=== PATIENT | female | born 1945 | race Caucasian/White ===

== ENCOUNTER 2022-07-25 18:45 | Inpatient (IN) | payer OTHER, MEDICAID ==
[~2022-07-25] VITALS: Ht 165.1 cm; Wt 72.5 kg
[2022-07-25] MEDS ORDERED: MORPHINE SULFATE 4 MG/ML SYR/VIAL IV ONE (20:45)
[2022-07-25] MEDS ORDERED: ACETAMINOPHEN 325 MG TAB PO PRN (21:00)
[2022-07-25] MEDS ORDERED: DOCUSATE SOD 100 MG CAP PO PRN (21:00)
[2022-07-25] MEDS ORDERED: ONDANSETRON HCL 4 MG/2 ML VIAL IV PRN (21:00)
[2022-07-25] MEDS: D5W/SOD CHLO 0.9% 1,000 ML IV SCH (21:28)
[2022-07-25] MEDS ORDERED: NITROGLYCERIN 0.4 MG SL TAB SL PRN (21:30)
[2022-07-25] MEDS ORDERED: MORPHINE SULFATE INJ 2 MG/ml SYRG IV PRN (21:30)
[2022-07-25 21:57] LABS: Basophils # (auto) 0 10 ^3/uL (0-0.2); Basophils % (auto) 0.5 % (0.0-2.0); Eosinophils # (auto) 0 10 ^3/uL (0-0.8); Eosinophils % (auto) 0.3 % (0.0-7.0); Hematocrit 43.3 % (36.0-46.0); Hemoglobin 14.5 g/dL (12.2-16.2); Lymphocytes % (auto) 12.2 % (10.0-50.0); Mean Corpuscular Hemoglobin 29.8 pg (28.0-32.0); Mean Corpuscular Hgb Conc. 33.4 g/dL (32.0-36.0); Monocytes # (auto) 0.3 10 ^3/uL (0-1.3); Monocytes % (auto) 3.7 % (0.0-12.0); Neutrophils # (auto) 7.2 10 ^3/uL (1.6-8.6); Neutrophils % (auto) 83.3 % (37.0-80.0); Nucleated Red Blood Cells % 0.1 %; Red Blood Cells 4.86 10^6/uL (4.0-5.20); Red Cell Distribution Width 13.7 % (11.8-14.3); White Blood Cell 8.6 10^3/uL (4.4-10.8)
[2022-07-25 22:11] LABS: Urine Bacteria FEW /hpf (None Seen); Urine Blood Negative /uL (Negative); Urine WBC <1 /hpf (0 - 5)
[2022-07-25 22:14] LABS: Albumin 3.8 g/dL (3.4-5.0); Calcium 8.4 mg/dL (8.5-10.1); Potassium 3.6 mmol/L (3.5-5.1)
[2022-07-25 22:17] LABS: Bilirubin, Total 0.5 mg/dL (0.2-1.0); Total Protein 6.9 g/dL (6.4-8.2)
[2022-07-26] VITALS (8 sets, daily range): BP systolic 137–193; BP diastolic 84–106
[2022-07-26] MEDS: hydrALAZINE HCL 20 MG/ML VL IV PRN ×2 (00:54→21:48)
[2022-07-26] MEDS: MORPHINE SULFATE INJ 2 MG/ml SYRG IV PRN (04:17)
[2022-07-26 08:44] LABS: Basophils # (auto) 0 10 ^3/uL (0-0.2); Basophils % (auto) 0.4 % (0.0-2.0); Eosinophils # (auto) 0 10 ^3/uL (0-0.8); Eosinophils % (auto) 0.1 % (0.0-7.0); Hemoglobin 14.8 g/dL (12.2-16.2); Lymphocytes # (auto) 0.9 10 ^3/uL (0.4-5.4); Lymphocytes % (auto) 14.5 % (10.0-50.0); Mean Corpuscular Hemoglobin 30.2 pg (28.0-32.0); Mean Corpuscular Hgb Conc. 33.8 g/dL (32.0-36.0); Mean Corpuscular Volume 89.5 fL (80.0-100.0); Monocytes # (auto) 0.4 10 ^3/uL (0-1.3); Monocytes % (auto) 6.4 % (0.0-12.0); Neutrophils # (auto) 5.1 10 ^3/uL (1.6-8.6); Neutrophils % (auto) 78.6 % (37.0-80.0); Nucleated Red Blood Cells % 0.1 %; Red Blood Cells 4.91 10^6/uL (4.0-5.20); Red Cell Distribution Width 13.6 % (11.8-14.3); White Blood Cell 6.5 10^3/uL (4.4-10.8)
[2022-07-26 08:54] LABS: INR 0.94 (0.9-1.15); Partial Thromboplastin Time 25.9 sec (24.6-33.4)
[2022-07-26 08:58] LABS: Albumin 3.9 g/dL (3.4-5.0); Calcium 8.4 mg/dL (8.5-10.1); Potassium 3.7 mmol/L (3.5-5.1)
[2022-07-26 09:03] LABS: Bilirubin, Total 0.9 mg/dL (0.2-1.0); Total Protein 7.1 g/dL (6.4-8.2)
[2022-07-26] MEDS: ENOXAPARIN SOD 40 MG/0.4 ML SYRINGE SC SCH (10:14)
[2022-07-26] MEDS: FAMOTIDINE (10MG/ML) 2ML VL IV SCH (10:14)
[2022-07-26 12:35] LABS: BUN/Creatinine Ratio 14.6
[2022-07-26] MEDS: HYDROcodone-ACET 5/325MG TAB PO PRN ×2 (14:59→20:25)
[2022-07-26] MEDS: D5W/SOD CHLO 0.9% 1,000 ML IV SCH (17:00)
[2022-07-27] VITALS (13 sets, daily range): BP systolic 100–183; BP diastolic 67–99
[2022-07-27] MEDS ORDERED: AMLO-496 PO (03:35)
[2022-07-27] MEDS: hydrALAZINE HCL 20 MG/ML VL IV PRN (05:12)
[2022-07-27] MEDS ORDERED: VANCOMYCIN HCL 1000 MG VL ONE (06:40)
[2022-07-27] MEDS ORDERED: BUPIVACAINE W/ EPINEPH 0.25% INJ 50ML MDV ONE (06:41)
[2022-07-27] MEDS ORDERED: KETOROLAC TROMETH 30 MG/ML 1ML VIAL ONE (06:42)
[2022-07-27] MEDS ORDERED: ceFAZolin 1GM/50ML 100 ML IV ONE (07:21)
[2022-07-27] MEDS ORDERED: fentaNYL CITRATE 100 MCG/2 ML VL ONE (07:50)
[2022-07-27] MEDS ORDERED: MIDAZOLAM HCL 2MG/2ML 2ml VIAL (1mg/ml) ONE (07:50)
[2022-07-27] MEDS ORDERED: ONDANSETRON HCL 4 MG/2 ML VIAL ONE (07:51)
[2022-07-27] MEDS ORDERED: PROPOFOL 10 MG/ML 20 ML IV ONE (07:51)
[2022-07-27] MEDS ORDERED: ePHEDrine SULFATE 50 MG/ML AMP ONE (07:51)
[2022-07-27] MEDS ORDERED: KETAMINE HCL 10 ML ONE (07:51)
[2022-07-27] MEDS ORDERED: BUPIVACAINE/DEXTROSE MPF 0.75% 2 ML AMP IT ONE (07:51)
[2022-07-27] MEDS ORDERED: PHENYLEPHRINE HCL 10 MG/ML VL ONE (07:51)
[2022-07-27] MEDS ORDERED: GLYCOPYRROLATE 0.2 MG/ML 1ML VIAL ONE (07:51)
[2022-07-27] MEDS ORDERED: MORPHINE SULF PF 5 MG/10 ML VIAL ONE (07:54)
[2022-07-27] MEDS ORDERED: TRANEXAMIC ACID 20 ML ONE (08:02)
[2022-07-27] MEDS: FAMOTIDINE (10MG/ML) 2ML VL IV SCH (10:00)
[2022-07-27] MEDS: ENOXAPARIN SOD 40 MG/0.4 ML SYRINGE SC SCH (10:00)
[2022-07-27] MEDS ORDERED: KETOROLAC TROMETH 30 MG/ML 1ML VIAL IV PRN (12:15)
[2022-07-27] MEDS ORDERED: KETOROLAC TROMETH 30 MG/ML 1ML VIAL IV ONE (12:15)
[2022-07-27] MEDS ORDERED: NALOXONE HCL 0.4 MG/ML VIAL IV PRN (12:15)
[2022-07-27] MEDS ORDERED: ONDANSETRON HCL 4 MG/2 ML VIAL IV PRN ×2 (12:15)
[2022-07-27] MEDS ORDERED: DexAMETHasone SOD PHOS 10MG/1ML VIAL INJ IV PRN (12:15)
[2022-07-27] MEDS ORDERED: diphenhdrAMINE HCL 50 MG/1 ML VL IV PRN (12:15)
[2022-07-27] MEDS: ceFAZolin 2 GM in D5W 5% 100 ML IV SCH ×2 (14:00→21:42)
[2022-07-27] MEDS: D5W/SOD CHLO 0.9% 1,000 ML IV SCH (17:36)
[2022-07-27 19:39] LABS: Basophils # (auto) 0 10 ^3/uL (0-0.2); Basophils % (auto) 0.2 % (0.0-2.0); Eosinophils # (auto) 0 10 ^3/uL (0-0.8); Hematocrit 38.7 % (36.0-46.0); Hemoglobin 12.7 g/dL (12.2-16.2); Lymphocytes % (auto) 15.6 % (10.0-50.0); Mean Corpuscular Hemoglobin 29.4 pg (28.0-32.0); Mean Corpuscular Hgb Conc. 32.7 g/dL (32.0-36.0); Mean Corpuscular Volume 89.6 fL (80.0-100.0); Monocytes # (auto) 0.5 10 ^3/uL (0-1.3); Monocytes % (auto) 7.2 % (0.0-12.0); Red Blood Cells 4.31 10^6/uL (4.0-5.20); Red Cell Distribution Width 13.9 % (11.8-14.3); White Blood Cell 6.5 10^3/uL (4.4-10.8)
[2022-07-28] VITALS (15 sets, daily range): BP systolic 122–176; BP diastolic 72–96
[2022-07-28] MEDS: ceFAZolin 2 GM in D5W 5% 100 ML IV SCH ×3 (06:12→21:36)
[2022-07-28] MEDS: D5W/SOD CHLO 0.9% 1,000 ML IV SCH ×2 (09:00→11:00)
[2022-07-28] MEDS: ENOXAPARIN SOD 40 MG/0.4 ML SYRINGE SC SCH (09:30)
[2022-07-28] MEDS: MORPHINE SULFATE INJ 2 MG/ml SYRG IV PRN (12:38)
[2022-07-28] MEDS ORDERED: ceFAZolin 1GM/50ML 50 ML IV ONE (14:02)
[2022-07-28] MEDS: HYDROcodone-ACET 5/325MG TAB PO PRN ×2 (14:05→21:35)
[2022-07-29] MEDS: hydrALAZINE HCL 20 MG/ML VL IV PRN ×2 (00:24→12:40)
[2022-07-29] MEDS: MORPHINE SULFATE INJ 2 MG/ml SYRG IV PRN ×2 (04:40→12:39)
[2022-07-29 04:57] VITALS: BP_SYST 158; BP_SYST 182; BP_DIAS 84; BP_DIAS 99
[2022-07-29] MEDS: ceFAZolin 2 GM in D5W 5% 100 ML IV SCH (05:25)
[2022-07-29] MEDS: D5W/SOD CHLO 0.9% 1,000 ML IV SCH (08:15)
[2022-07-29] MEDS: ENOXAPARIN SOD 40 MG/0.4 ML SYRINGE SC SCH (08:15)
[2022-07-29 08:30] VITALS: BP 185/97
[2022-07-29 10:13] VITALS: BP 152/93
[2022-07-29 12:30] VITALS: BP 143/77
[2022-07-29 16:42] VITALS: BP 133/87
== END 2022-07-29 19:53 | DRG 522 ==
LOC: EDBD 18:45 → ER 18:48 → EDBD 18:48 → OVERFLOW 21:23 → EAST 23:18 → TELE-CENTR 07-27 15:28
PROVIDERS: ADMIT Nurse Practitioner Family; ATTEND Internal Medicine
PROC: 0SRR0J9 Replacement of Right Hip Joint, Femoral Surface with Synthetic Substitute, Cemented, Open Approach (ICD-10-PCS; principal; 2022-07-27 08:12)
DX: S72.001A Fracture of unspecified part of neck of right femur, initial encounter for closed fracture (principal); W01.0XXA Fall on same level from slipping, tripping and stumbling without subsequent striking against object, initial encounter; Z20.822 Contact with and (suspected) exposure to COVID-19; Z60.2 Problems related to living alone; H91.90 Unspecified hearing loss, unspecified ear; I10 Essential (primary) hypertension; Y93.89 Activity, other specified; Y99.8 Other external cause status; Y92.098 Other place in other non-institutional residence as the place of occurrence of the external cause
CPT/HCPCS: 36415; 71045; 72170; 73501; 73502; 80053; 81001; 82962; 85025; 85610; 85730; 86850; 86900; 86901; 87081; 93306; 93971; 96374; 96375; 97110; 97116; 97163; 97530; G0378; J0690; J1885; J2250; J2405; J2704; J3490; J7042; J7060